=== PATIENT | female | born 1985 | race American Indian/Alaskan Native ===

== ENCOUNTER 2018-01-08 21:06 | Emergency (ER) | payer SELFPAY ==
[2018-01-08 22:22] LABS: Basophils # (Auto) 0.1 K/mm3 (0.0-0.1); Basophils % (Auto) 1.1 % (0.0-1.8); Eosinophils # (Auto) 0.4 K/mm3 (0.0-0.4); Eosinophils % (Auto) 8.1 % (0.0-4.3); Hemoglobin 12.7 gm/dl (10.1-14.3); Lymphocytes # (Auto) 2.1 K/mm3 (1.2-5.4); Lymphocytes % (Auto) 39.6 % (13.4-35.0); Mean Corpuscular HGB Conc 33 % (30-34); Mean Corpuscular Hemoglobin 29 pg (28-32); Mean Corpuscular Volume 86 fl (79-97); Monocytes # (Auto) 0.4 K/mm3 (0.0-0.8); Monocytes % (Auto) 6.9 % (0.0-7.3); Platelet Count 251 K/mm3 (140-440); Red Blood Count 4.41 M/mm3 (3.65-5.03); Red Cell Distribution Width 13.8 % (13.2-15.2)
[2018-01-08 22:38] LABS: Alanine Aminotransferase 10 units/L (7-56); Albumin 4.2 g/dL (3.9-5); BUN/Creatinine Ratio 12; Blood Urea Nitrogen 7 mg/dL (7-17); Calcium 8.9 mg/dL (8.4-10.2); Hemolysis Index 2; Lipase 22 units/L (13-60)
[2018-01-08 22:52] LABS: Bacteria,Urine 1+ /HPF (Negative); Bilirubin,Urine NEG (Negative); Blood,Urine NEG (Negative); Calcium Oxalate Crystals,Urine 1+; Color,Urine Yellow (Yellow); Mucus,Urine FEW /HPF; Protein,Urine <15 mg/dL mg/dL (Negative); Urobilinogen,Urine < 2.0 mg/dL (<2.0)
[2018-01-09] MEDS ORDERED: ZOFRAN ODT PO ONE (04:21)
[2018-01-09] MEDS ORDERED: TORADOL IM ONE (04:21)
[2018-01-09] MEDS ORDERED: TYLENOL PO ONE (04:21)
--- NOTE | 2018-01-09 04:22 | Emergency Department Report ---
ED Abdominal Pain HPI - General Chief Complaint: Abdominal Pain Stated Complaint: ABD PAIN Time Seen by Provider: 01/09/18 04:21 Source: patient, RN notes reviewed Mode of arrival: Ambulatory Limitations: No Limitations - History of Present Illness Initial Comments: This is a 32-year-old female, unknown to this provider previously, history of obesity, bilateral ovarian cysts and ovarian cyst removal in 2016. Primary care provider is at the [facility]. She also reports a history of ovarian cysts, fibroids, and painful menses. She presents to the ER with complaints of suprapubic and bilateral lower quadrant pain. Its present for 2 weeks. It is intermittent. It worsens with palpation. It decreases with rest. She denies headache, neck pain, chest pain, urinary symptoms. The patient reports being sexually active with one partner, does not work condoms, denies a history of sexually transmitted infections. MD Complaint: abdominal pain -: Gradual Location: LLQ, RLQ Migration to: no migration Severity: mild Severity scale (0 -10): 10 Quality: cramping, aching Consistency: intermittent Improves With: rest Worsens With: movement Associated Symptoms: nausea, vomiting, diarrhea. denies: fever, chills, constipation, dysuria, hematemesis, hematochezia, melena, hematuria, anorexia, syncope - Related Data Previous Rx's Medication Instructions Recorded Last Taken Type Acetaminophen [Tylenol Arthritis] 650 mg PO Q6HR PRN #30 tablet.er 01/09/18 Unknown Rx Ibuprofen [Motrin] 600 mg PO Q8H PRN #30 tablet 01/09/18 Unknown Rx Ondansetron [Zofran Odt] 4 mg PO Q8HR PRN #20 tab.rapdis 01/09/18 Unknown Rx Allergies Allergy/AdvReac Type Severity Reaction Status Date / Time No Known Allergies Allergy Unverified 01/08/18 22:04 ED Review of Systems ROS: Stated complaint: ABD PAIN Other details as noted in HPI Comment: All other systems reviewed and negative Constitutional: denies: fever Gastrointestinal: abdominal pain, nausea, vomiting, diarrhea Genitourinary: abnormal menses. denies: dysuria ED Past Medical Hx - Past Medical History Additional medical history: Uterine Fibroids, Ovarian cysts - Surgical History Additional Surgical History: Bilateral cyst removal - Social History Smoking Status: Never Smoker Substance Use Type: None - Medications Home Medications: Home Medications Medication Instructions Recorded Confirmed Last Taken Type Acetaminophen [Tylenol Arthritis] 650 mg PO Q6HR PRN #30 tablet.er 01/09/18 Unknown Rx Ibuprofen [Motrin] 600 mg PO Q8H PRN #30 tablet 01/09/18 Unknown Rx Ondansetron [Zofran Odt] 4 mg PO Q8HR PRN #20 tab.rapdis 01/09/18 Unknown Rx ED Physical Exam - General Limitations: No Limitations General appearance: alert, in no apparent distress - Head Head exam: Present: atraumatic, normocephalic - Eye Eye exam: Present: normal appearance, EOMI. Absent: nystagmus - ENT ENT exam: Present: normal exam, normal orophraynx, mucous membranes moist, normal external ear exam - Neck Neck exam: Present: normal inspection, full ROM - Respiratory Respiratory exam: Present: normal lung sounds bilaterally. Absent: respiratory distress - Cardiovascular Cardiovascular Exam: Present: regular rate, normal rhythm, normal heart sounds. Absent: bradycardia, tachycardia, irregular rhythm, systolic murmur, diastolic murmur, rubs, gallop - GI/Abdominal GI/Abdominal exam: Present: soft, tenderness, normal bowel sounds, other (there is suprapubic and left lower quadrant tenderness. There is no right lower quadrant tenderness. There is negative Mills sign. there is a negative Rovsing sign). Absent: distended, guarding, rebound, rigid, pulsatile mass - External exam: Present: normal external exam Speculum exam: Present: normal speculum exam. Absent: cervical discharge, vaginal bleeding Bi-manual exam: Present: normal bi-manual exam, other (escorted by JAYNA Anna). Absent: cervical motion tendernes, adnexal tenderness, adnexal mass, uterine enlargement, uterine tenderness - Extremities Exam Extremities exam: Present: normal inspection, full ROM, normal capillary refill. Absent: tenderness, pedal edema, joint swelling, calf tenderness - Back Exam Back exam: Present: normal inspection, full ROM. Absent: tenderness, CVA tenderness (R), paraspinal tenderness, vertebral tenderness - Neurological Exam Neurological exam: Present: alert, oriented X3, CN II-XII intact, normal gait, other (Extraocular movements intact. Tongue midline. No facial droop. Facial sensation intact to light touch in the V1, V2, V3 distribution bilaterally. 5 and 5 strength in 4 extremities.. Sensation is intact to light touch in 4 extremities.). Absent: motor sensory deficit - Psychiatric Psychiatric exam: Present: normal affect, normal mood - Skin Skin exam: Present: warm, dry, intact, normal color. Absent: rash ED Course Vital Signs 01/08/18 01/08/18 01/09/18 21:40 21:59 02:58 Temperature 98.4 F 98.4 F 97.9 F Pulse Rate 71 81 77 Respiratory 14 18 16 Rate Blood Pressure 109/69 109/69 Blood Pressure 124/78 [Left] O2 Sat by Pulse 98 98 100 Oximetry 01/09/18 01/09/18 04:00 04:39 Temperature Pulse Rate 77 Respiratory 16 Rate Blood Pressure 129/74 Blood Pressure [Left] O2 Sat by Pulse 100 Oximetry - Reevaluation(s) Reevaluation #1: 01/09/18 05:26 Differential diagnosis, including but not limited to: Pelvic inflammatory disease, ovarian cyst, ovarian torsion, constipation, urinary tract infection, trichomoniasis Assessment and plan: 32-year-old female, 6 reactive with 1 male partner, does not wear condoms. Has subacute abdominal pain. She is afebrile with reassuring vital signs had a benign gynecologic examination. However wet prep demonstrated trichomoniasis. Patient will be treated empirically with ceftriaxone, azithromycin, and metronidazole. Pelvic ultrasound is pending. [facility] Dr. Brianne Villalpando, to follow up on pelvic ultrasound. If no surgical disease is noted, which I expect, patient will be discharged her pain medication, nausea medication, instructions to follow up with outpatient gynecology. ED Medical Decision Making - Lab Data Result diagrams: 01/08/18 22:11 01/08/18 22:11 Vital Signs 01/08/18 01/08/18 01/09/18 21:40 21:59 02:58 Temperature 98.4 F 98.4 F 97.9 F Pulse Rate 71 81 77 Respiratory 14 18 16 Rate Blood Pressure 109/69 109/69 Blood Pressure 124/78 [Left] O2 Sat by Pulse 98 98 100 Oximetry 01/09/18 01/09/18 04:00 04:39 Temperature Pulse Rate 77 Respiratory 16 Rate Blood Pressure 129/74 Blood Pressure [Left] O2 Sat by Pulse 100 Oximetry Lab Results 01/08/18 01/08/18 01/08/18 Range/Units 22:06 22:11 22:11 WBC 5.2 (4.5-11.0) K/mm3 RBC 4.41 (3.65-5.03) M/mm3 Hgb 12.7 (10.1-14.3) gm/dl Hct 38.0 (30.3-42.9) % MCV 86 (79-97) fl MCH 29 (28-32) pg MCHC 33 (30-34) % RDW 13.8 (13.2-15.2) % Plt Count 251 (140-440) K/mm3 Lymph % (Auto) 39.6 H (13.4-35.0) % Wheeler % (Auto) 6.9 (0.0-7.3) % Eos % (Auto) 8.1 H (0.0-4.3) % Baso % (Auto) 1.1 (0.0-1.8) % Lymph # 2.1 (1.2-5.4) K/mm3 Wheeler # 0.4 (0.0-0.8) K/mm3 Eos # 0.4 (0.0-0.4) K/mm3 Baso # 0.1 (0.0-0.1) K/mm3 Seg Neutrophils % 44.3 (40.0-70.0) % Seg Neutrophils # 2.3 (1.8-7.7) K/mm3 Sodium 138 (137-145) mmol/L Potassium 4.1 (3.6-5.0) mmol/L Chloride 101.6 (98-107) mmol/L Carbon Dioxide 26 (22-30) mmol/L Anion Gap 15 mmol/L BUN 7 (7-17) mg/dL Creatinine 0.6 L (0.7-1.2) mg/dL Estimated GFR > 60 ml/min BUN/Creatinine Ratio 12 % Glucose 89 (65-100) mg/dL Calcium 8.9 (8.4-10.2) mg/dL Total Bilirubin 0.20 (0.1-1.2) mg/dL AST 15 (5-40) units/L ALT 10 (7-56) units/L Alkaline Phosphatase 48 (35-129) units/L Total Protein 7.1 (6.3-8.2) g/dL Albumin 4.2 (3.9-5) g/dL Albumin/Globulin Ratio 1.4 % Lipase 22 (13-60) units/L HCG, Qual (Negative) Urine Color Yellow (Yellow) Urine Turbidity Clear (Clear) Urine pH 5.0 (5.0-7.0) Ur Specific [place] 1.026 (1.003-1.030) Urine Protein <15 mg/dl (Negative) mg/dL Urine Glucose (UA) Neg (Negative) mg/dL Urine Ketones Neg (Negative) mg/dL Urine Blood Neg (Negative) Urine Nitrite Neg (Negative) Urine Bilirubin Neg (Negative) Urine Urobilinogen < 2.0 (<2.0) mg/dL Ur Leukocyte Esterase Neg (Negative) Urine WBC (Auto) 2.0 (0.0-6.0) /HPF Urine RBC (Auto) 4.0 (0.0-6.0) /HPF U Epithel Cells (Auto) 1.0 (0-13.0) /HPF Urine Bacteria (Auto) 1+ (Negative) /HPF Calcium Oxalate Crystal 1+ Urine Mucus Few /HPF 01/08/18 Range/Units 22:11 WBC (4.5-11.0) K/mm3 RBC (3.65-5.03) M/mm3 Hgb (10.1-14.3) gm/dl Hct (30.3-42.9) % MCV (79-97) fl MCH (28-32) pg MCHC (30-34) % RDW (13.2-15.2) % Plt Count (140-440) K/mm3 Lymph % (Auto) (13.4-35.0) % Wheeler % (Auto) (0.0-7.3) % Eos % (Auto) (0.0-4.3) % Baso % (Auto) (0.0-1.8) % Lymph # (1.2-5.4) K/mm3 Wheeler # (0.0-0.8) K/mm3 Eos # (0.0-0.4) K/mm3 Baso # (0.0-0.1) K/mm3 Seg Neutrophils % (40.0-70.0) % Seg Neutrophils # (1.8-7.7) K/mm3 Sodium (137-145) mmol/L Potassium (3.6-5.0) mmol/L Chloride (98-107) mmol/L Carbon Dioxide (22-30) mmol/L Anion Gap mmol/L BUN (7-17) mg/dL Creatinine (0.7-1.2) mg/dL Estimated GFR ml/min BUN/Creatinine Ratio % Glucose (65-100) mg/dL Calcium (8.4-10.2) mg/dL Total Bilirubin (0.1-1.2) mg/dL AST (5-40) units/L ALT (7-56) units/L Alkaline Phosphatase (35-129) units/L Total Protein (6.3-8.2) g/dL Albumin (3.9-5) g/dL Albumin/Globulin Ratio % Lipase (13-60) units/L HCG, Qual Negative (Negative) Urine Color (Yellow) Urine Turbidity (Clear) Urine pH (5.0-7.0) Ur Specific [place] (1.003-1.030) Urine Protein (Negative) mg/dL Urine Glucose (UA) (Negative) mg/dL Urine Ketones (Negative) mg/dL Urine Blood (Negative) Urine Nitrite (Negative) Urine Bilirubin (Negative) Urine Urobilinogen (<2.0) mg/dL Ur Leukocyte Esterase (Negative) Urine WBC (Auto) (0.0-6.0) /HPF Urine RBC (Auto) (0.0-6.0) /HPF U Epithel Cells (Auto) (0-13.0) /HPF Urine Bacteria (Auto) (Negative) /HPF Calcium Oxalate Crystal Urine Mucus /HPF - Radiology Data Radiology results: pending Critical care attestation.: If time is entered above; I have spent that time in minutes in the direct care of this critically ill patient, excluding procedure time. ED Disposition Clinical Impression: Lower abdominal pain, Trichomoniasis Disposition: DC-01 TO HOME OR SELFCARE Is pt being admited?: No Does the pt Need Aspirin: No Condition: Stable Instructions: Pelvic Inflammatory Disease (ED), Trichomoniasis (ED) Additional Instructions: Wet prep demonstrated trichomoniasis. This is typically considered a sexually transmitted disease. Not consume alcohol for the next week. Given all this, you'll be treated empirically for disease called pelvic inflammatory disease. We typically treat young females with unexplained lower abdominal pain to protect your ability to have children safely in the future. Cultures were sent today, and results will be available next 3-5 days. Please have your primary care doctor call the medical records department to obtain your culture results. Take the antibiotic therapy as directed. Take the nausea medication and pain medication as directed. I recommend outpatient testing for sexually transmitted diseases, including hepatitis, syphilis and HIV. I also recommend that you abstain from sexual activity until you have completed her antibiotic therapy, a physician states that it is safe for you to resume sexual activity, and any partners that you have been sexually active with have been tested/treated/evaluated for sexual transmitted diseases. Please follow-up with physician within 3-5 days. I recommend that you return to the ER right away with worsening pain, migration of pain, intractable nausea/vomiting, inability tolerate liquid feeds. Referrals: [facility] [Provider Group] - 3-5 Days [facility] [Provider Group] - 3-5 Days [facility] [Provider Group] - 3-5 Days
[2018-01-09] MEDS ORDERED: FLAGYL PO ONE (05:23)
[2018-01-09] MEDS ORDERED: ROCEPHIN IM ONE (05:23)
[2018-01-09] MEDS ORDERED: ZITHROMAX PO ONE (05:23)
[2018-01-09] MEDS ORDERED: XYLOCAINE 1% MPF 5 mL INFILTRATI ONE (05:23)
[2018-01-09 06:26] VITALS: BP 112/67
--- NOTE | 2018-01-09 06:32 | Ultrasound Report ---
FINAL REPORT EXAM: US TRANSVAGINAL HISTORY: pelvic pain fibroids COMPARISONS: None. FINDINGS: Transvaginal grayscale, color and spectral Doppler pelvic ultrasound The uterus is anteverted and measures 9.7 x 5.9 x 6.9 cm. Myometrium is heterogeneous. Better demonstrated on transabdominal ultrasound are 2 round hypoechoic transmural fibroids measuring up to 2.6 cm. No endometrial distortion or submucosal components identified. Endometrium is homogeneous and measures approximately 1-2 millimeters in thickness. There is a 2.6 centimeter functional cyst in the right ovary. The right ovary measures 3.9 x 2.8 x 4 cm and demonstrates normal color and spectral Doppler evaluation. The left ovary demonstrates normal echotexture and measures 3 x 1.8 x 2.5 cm. Spectral Doppler waveform is best demonstrated on transabdominal ultrasound of the same date. IMPRESSION: Two transmural uterine fibroids measure up to 2.6 cm and are better demonstrated on transabdominal ultrasound of the same date. There is no endometrial distortion or submucosal component identified.
--- NOTE | 2018-01-09 06:34 | Ultrasound Report ---
FINAL REPORT EXAM: US PELVIS DUPLEX DOPPLER COMP HISTORY: pelvic pain fibroids COMPARISONS: None. FINDINGS: Transabdominal grayscale, color and spectral Doppler pelvic ultrasound The uterus is anteverted and measures 9.7 x 5.9 x 6.9 cm. Myometrium is heterogeneous. There are 2 round hypoechoic transmural fibroids measuring up to 2.6 cm. No endometrial distortion or submucosal components identified. Endometrium is homogeneous and measures approximately 1-2 millimeters in thickness. There is a 2.6 centimeter functional cyst in the right ovary. The right ovary measures 3.9 x 2.8 x 4 cm and demonstrates normal color and spectral Doppler evaluation. The left ovary demonstrates normal echotexture and measures 3 x 1.8 x 2.5 cm. Normal left ovarian color and spectral Doppler evaluation. IMPRESSION: Two transmural uterine fibroids measure up to 2.6 cm. There is no endometrial distortion or submucosal component identified.
== END 2018-01-09 06:56 | disposition home or self-care (01) ==
LOC: ED 21:06
DX: A59.9 Trichomoniasis, unspecified (principal)
CPT/HCPCS: 36415; 76830; 80053; 81001; 83690; 84703; 85025; 87210; 87591; 93975; 96372; 99284; J0696; J1885; Q0162